=== PATIENT | female | born 1950 | race Two or more races ===

== ENCOUNTER 2022-09-24 11:57 | Outpatient (CLI) | payer OTHER | END 2022-09-24 11:58 | disposition home or self-care (01) | LOC: LAB 11:57 | PROVIDERS: ATTEND Specialist | DX: Z01.812 Encounter for preprocedural laboratory examination (principal); Z20.822 Contact with and (suspected) exposure to COVID-19 | CPT/HCPCS: U0003; C9803 ==

== ENCOUNTER 2022-09-30 05:14 | Inpatient (IN) | payer OTHER ==
[~2022-09-30 05:14] MED LIST: LIDOCAINE 0.5%-EPI 1:200,000 50 ML VIAL ONE
[2022-09-30 05:52] VITALS: BP 134/79
--- NOTE | 2022-09-30 06:18 | NUR ---
PRINCIPAL MILITARY ANALYST NOTE RECEIVED PT FROM DIRECT ADMIT. PT SCHEDULED FOR RIGHT HIP TOTAL ARTHROPLASTY @ 0700 TODAY. PT IS AMBULATORY, A/O X 4, NEPALI SPEAKING. SISTER ON BED SIDE. ON RA TOLERATING WELL, SATING @ 98%. NO S/SX OF ACUTE RESPI DISTRESS NOTED. DENIES PAIN. NO SOB, BREATHING IS EVEN AND UNLABORED. IV LINE STARTED ON LEFT HAND, #20G. PATENT, INTACT AND FLUSHES WELL. SKIN IS INTACT. VS STABLE. ALL SAFETY MEASURES IN PLACE: BED LOCKED IN LOW POSITION, BED ALARM ON. SR UP X 2. CALL LIGHT WITHIN REACH. WILL ENDORSE TO AM SHIFT NURSE FOR MICHELLE.
[2022-09-30] MEDS ORDERED: BUPIVACAINE 0.5 % PF 150 MG/30 ML VIAL ONE (06:22)
[2022-09-30] MEDS ORDERED: POLYMYXIN B SULFATE 500,000 UNITS ONE (06:23)
--- NOTE | 2022-09-30 06:40 | NUR ---
RN NOTE LEFT FOR SURGERY @ 7828
[2022-09-30] MEDS ORDERED: FAMOTIDINE/PF INJ 20 MG/2 ML VIAL IV ONE (06:45)
[2022-09-30] MEDS ORDERED: MIDAZOLAM HCL 2 MG/2ML VIAL ONE (06:45)
[2022-09-30] MEDS ORDERED: FENTANYL PF 250MCG/5ML AMPUL ONE (06:45)
[2022-09-30] MEDS ORDERED: SUCCINYLCHOLINE CHLORIDE 20 MG/ML VIAL ONE (06:46)
[2022-09-30] MEDS ORDERED: TRANEXAMIC ACID 3,000 MG in SODIUM CHLORIDE IRRIG SOLUTION 70 ML IR ONE (07:00)
[2022-09-30] MEDS ORDERED: DULCOLAX 10 MG/SUPP.RECT RC PRN (08:30)
[2022-09-30] MEDS ORDERED: AMBIEN 5 MG TABLET PO PRN (08:30)
[2022-09-30] MEDS ORDERED: COLACE 250 MG CAPSULE PO PRN (08:30)
[2022-09-30] MEDS ORDERED: SENOKOT 8.6 MG TABLET PO PRN (08:30)
[2022-09-30] MEDS ORDERED: HYDROCODONE/APAP 5/325MG TABLET PO PRN (08:30)
[2022-09-30] MEDS ORDERED: ZOFRAN 4mg/2ML IV PRN (08:30)
--- NOTE | 2022-09-30 09:25 | NUR ---
RN Receiving Note Patient Arrived to unit, transported by OR team.Patient with no signs of distress, VSS. Oriented to unit, made aware of call light use. Friends at bedside stating they will alternate to come and help her out. All safety precautions taken, call light and table within reach, bed at lowest position. Will continue to monitor throughout shift.
[2022-09-30 09:45] VITALS: BP 110/54
[2022-09-30] MEDS: IV LR 1000 ML 1,000 ML IV PRN ×2 (10:40→22:12)
[2022-09-30] MEDS ORDERED: ATOR10TA PO (10:52)
[2022-09-30] MEDS ORDERED: EMPA25TA PO (10:52)
[2022-09-30] MEDS: HYDROMORPHONE 1 MG/1 ML DISP.SYRIN IV PRN ×2 (13:52→22:04)
[2022-09-30] MEDS: ANCEF 1 G in IV D5W 50 ML IV SCH ×2 (15:58→23:02)
[2022-09-30 16:00] VITALS: BP 105/62
--- NOTE | 2022-09-30 18:15 | NUR ---
RN closing Note Patient AOx4, able to express her own concerns. Patient with no signs of distress, VSS Medications administered as prescribed, care provided as needed. Patients aware of plan of care , verbalized agreement. All safety precautions taken, call light and table within reach, bed at lowest position. Will endorse to night nurse for continuity of care
--- NOTE | 2022-09-30 19:00 | NUR ---
PATIENT RECEIVED FROM DAY SHIFT NURSE INTERMITTENTLY AWAKE AND QUIET. VITAL SIGNS STABLE. SALINE LOCK IN RIGHT AND LEFT ARM PATENT AND INTACT. PT COMPLAINS OF RIGHT HIP PAIN. PAIN MEDS GIVEN. RIGHT HIP DRESSING DRY AND INTACT. NO SIGNS REDNESS OR BLEEDING. PATIENT RESTING COMFORTABLY IN BED. NO SIGNS OF SHORTNESS OF BREATH, NAUSEA OR VOMITING NOTED. NO ACUTE DISTRESS NOTED.
[2022-09-30 20:46] VITALS: BP 117/64
[2022-10-01] MEDS: HYDROMORPHONE 1 MG/1 ML DISP.SYRIN IV PRN ×3 (02:14→12:48)
[2022-10-01 06:23] LABS: ALANINE AMINOTRANSFERASE 22 U/L (12-78); ALBUMIN 2.6 g/dL (3.4-5.0); ALKALINE PHOSPHATASE 75 U/L (46-116); ASPARTATE AMINOTRANSFERASE 26 U/L (15-37); BASOPHILS % (AUTO) 0.3 % (0.0-2.0); BILIRUBIN,TOTAL 0.9 mg/dL (0.2-1.0); CALCIUM, SERUM 8.2 mg/dL (8.5-10.1); CARBON DIOXIDE 25 mmol/L (21-32); CHLORIDE 105 mmol/L (98-107); CREATININE 0.9 mg/dL (0.6-1.3); EOSINOPHILS % (AUTO) 0.2 % (0.0-6.0); GLUCOSE 127 mg/dL (74-106); HEMATOCRIT 28 % (33-45); HEMOGLOBIN 9.5 g/dL (11.5-14.8); LYMPHOCYTES # (AUTO) 2.2 K/uL (0.8-4.8); LYMPHOCYTES % (AUTO) 18.9 % (20.0-44.0); MAGNESIUM 1.8 mg/dL (1.8-2.4); MEAN CORPUSCULAR HGB CONC 34 g/dl (31.0-36.0); MEAN CORPUSCULAR VOLUME 89 fL (82-100); MONOCYTES % (AUTO) 8.6 % (2.0-12.0); NEUTROPHILS # (AUTO) 8.4 K/uL (1.8-8.9); PHOSPHORUS 3.2 mg/dL (2.5-4.9); PLATELET COUNT (AUTO) 188 K/uL (150-450); POTASSIUM 3.6 mmol/L (3.5-5.1); RED BLOOD CELL COUNT(AUTO) 3.19 MIL/uL (4.0-5.2); SODIUM SERUM 138 mmol/L (136-145); TOTAL PROTEIN, SERUM 5.7 g/dL (6.4-8.2); UREA NITROGEN, BLOOD 12 mg/dL (7-18); WHITE BLOOD COUNT (AUTO) 11.7 K/uL (4.3-11.0)
--- NOTE | 2022-10-01 07:38 | NUR ---
REPORT GIVEN TO INCOMING NURSE. PATIENT IN STABLE CONDITION. PATIENT COMPLAINS OF PAIN TO DAY SHIFT. DAY NURSE WILL ADMINISTER PAIN MED. NO ACUTE DISTRESS NOTED.
[2022-10-01 08:00] VITALS: BP 117/62
[2022-10-01] MEDS: ASPIRIN 325 MG TABLET PO SCH (08:52)
--- NOTE | 2022-10-01 13:20 | NUR ---
RN Opening Note Patient AOx4 able to express her concerns, no signs of distress, VSS. Made aware of plan of care and the need to work with PT for eval, verbalized agreement. All safety precautions taken, call light and table within reach, bed at lowest position. Will continue to monitor throughout shift.
[2022-10-01] MEDS: IV LR 1000 ML 1,000 ML IV PRN (15:27)
[2022-10-01 16:00] VITALS: BP 120/59
--- NOTE | 2022-10-01 19:15 | NUR ---
MS RN OPENING NOTE RECEIVED PT RESTING IN BED AWAKE. A/O X4, ABLE TO MAKE NEEDS KNOWN, FARSI SPEAKING, SPEAKS SOME GABONESE. ON RA WITH NO S/S OF SOB OR DISTRESS. R HIP SX WOUND CHECKED, DRESSING INTACT. IV ACCESS RFA, INTACT AND PATENT, FLUSHING WELL, RUNNING LR @ 100 ML/HR. HERNANDEZ CATHETER INTACT WITH CLEAR, YELLOW URINE NOTED. SAFETY PRECAUTIONS IN PLACE: BED LOCKED AND IN LOWEST POSITION, SIDE RAILS UP X2, CALL LIGHT AND TRAY TABLE WITHIN REACH. WILL CONTINUE TO MONITOR.
[2022-10-01 20:00] VITALS: BP 112/51
--- NOTE | 2022-10-01 20:12 | NUR ---
RN NOTES PT O2 SAT NOTED AT 86%. PLACED ON O2 2L VIA NC.
--- NOTE | 2022-10-01 20:48 | NUR ---
RN NOTES PT O2 SAT RE-ASSESSED: 97%.
[2022-10-01] MEDS: TYLENOL 650 MG TABLET PO PRN (21:59)
--- NOTE | 2022-10-01 22:00 | NUR ---
RN NOTES PT C/O 2/10 LEVEL CLOSE TO SX SITE. GIVEN TYLENOL ORDERED.
[2022-10-02] MEDS: IV LR 1000 ML 1,000 ML IV PRN (01:00)
--- NOTE | 2022-10-02 07:03 | NUR ---
MS RN CLOSING NOTE PT LYING IN BED AWAKE. A/O X4, ABLE TO MAKE NEEDS KNOWN, FARSI SPEAKING, SPEAKS SOME MAURITIAN. STABLE ON 2L VIA NC WITH NO S/S OF SOB OR DISTRESS. R HIP SX WOUND CHECKED, DRESSING INTACT. IV ACCESS RFA, INTACT AND PATENT, FLUSHING WELL, RUNNING LR @ 100 ML/HR. HERNANDEZ CATHETER INTACT WITH CLEAR, YELLOW URINE NOTED. ALL CARE PROVIDED AND MEDS TOLERATED WELL. SAFETY PRECAUTIONS MAINTAINED: BED LOCKED AND IN LOWEST POSITION, SIDE RAILS UP X2, CALL LIGHT AND TRAY TABLE WITHIN REACH. WILL ENDORSE MICHELLE TO DAY SHIFT NURSE.
--- NOTE | 2022-10-02 07:20 | NUR ---
MS RN OPENING NOTE PATIENT LYING IN BED AWAKE, ALERT AND ORIENTED X 4, ABLE TO MAKE NEEDS KNOWN. ON OXYGEN AT 2LPM VIA NASAL CANULA WITH EQUAL AND UNLABORED BREATHING WITH NO SIGNS OF RESPIRATORY DISTRESS NOTED. WITH IV ACCESS ON THE RIGHT FOREARM WITH LR RUNNING AT 100ML/HR, INFUSING WELL. WITH DRESSING ON THE RIGHT HIP R/T R HIP SURGERY, DRY AND INTACT. IV ACCESS RFA, INTACT AND PATENT, FLUSHING WELL, RUNNING LR @ 100 ML/HR. HERNANDEZ CATHETER INTACT WITH CLEAR, YELLOW URINE NOTED. SAFETY PRECAUTIONS MAINTAINED: BED LOCKED AND IN LOWEST POSITION, SIDE RAILS UP X2, CALL LIGHT AND TRAY TABLE WITHIN REACH. WILL CONTINUE WITH PLAN OF CARE.
[2022-10-02] MEDS: TYLENOL 650 MG TABLET PO PRN ×2 (07:36→13:51)
[2022-10-02 09:05] VITALS: BP 109/66
[2022-10-02] MEDS: ASPIRIN 325 MG TABLET PO SCH (09:11)
--- NOTE | 2022-10-02 11:00 | NUR ---
MS RN NOTE PATIENT SEEN BY DR. GUZMAN. PATIENT FOR DISCHARGE, HEALTH TEACHINGS DONE REGARDIGN DISCHARGE, VERBALIZED UNDERSTANDIN AND APPRECIATION. IN STABLE CONDITION. HERNANDEZ CATHETER REMOVED ORDERED. TOLERATED WELL.
[2022-10-02] MEDS ORDERED: ASPI-992 PO (13:02)
[2022-10-02] MEDS: HYDROMORPHONE 1 MG/1 ML DISP.SYRIN IV PRN (15:29)
--- NOTE | 2022-10-02 16:15 | NUR ---
MS RN NOTE IV ACCESS REMOVED AND COVERED WITH DRY DRESSING. NO SIGNS OF BLEEDING NOTED. SURGICAL DRESSING CHANGED AND COVERED WITH FRESH DRESSINGS. NO SIGNS OF BLEEDING AND INFECTION NOTED ON SURGICAL WOUND. REFUSED PICTURE FOR DOCUMENTATION. HEALTH TEAHCINGS DONE REGARDING DISCHARGE AND DISCHARE INSTURCTIONS WITH SISTERS AT BEDSIDE. VERBALIZED UNDERSTANDIGN AND APPRECIATION. PATIENT DISCHARGED ORDERED IN STABLE CONDITION. ACCOMPANIED ON A WHEELCHAIR TO LOBBY. ENDORSED ACCORDINGLY.
== END 2022-10-02 15:55 | disposition home or self-care (01) | DRG 324 ==
LOC: DS 05:14 → MEDSG1 05:16 → MED 09:26
PROC: 0SR90JZ Replacement of Right Hip Joint with Synthetic Substitute, Open Approach (ICD-10-PCS; principal; 2022-09-30)
DX: M16.11 Unilateral primary osteoarthritis, right hip (principal); E11.9 Type 2 diabetes mellitus without complications; Z20.822 Contact with and (suspected) exposure to COVID-19; E78.5 Hyperlipidemia, unspecified; I10 Essential (primary) hypertension
CPT/HCPCS: 36415; 80053-TC; 82962-TC; 83735-TC; 84100-TC; 85025-TC; 88305-TC; 88311-TC; 97112-TC; 97116-TC; 97530-TC; A4217; A4223; A6209; C1776; G0378; J0330; J0690; J1170; J2250; J2405; J2704; J2765; J3010; J3490; J7030; J7060; J7120